=== PATIENT | female | born 2000 | race Two or more races ===

== ENCOUNTER 2024-04-21 14:50 | Emergency (ER) | payer OTHER ==
[~2024-04-21] VITALS: Ht 160 cm; Wt 95.5 kg
[2024-04-21 14:53] VITALS: BP 123/66; PULSE 65; RESP 18; TEMP 98.2; O2SAT 99
[2024-04-21] MEDS: ACETAMINOPHEN 500 MG TABLET PO ONE (15:42)
[2024-04-21] MEDS: LIDOCAINE 5% TRANSDERMAL PATCH TD ONE (15:45)
[2024-04-21] MEDS ORDERED: ACET-3385 PO (17:04)
[2024-04-21] MEDS ORDERED: IBUP-1492 PO (17:04)
[2024-04-21] MEDS ORDERED: LIDO700A15 TP (17:04)
== END 2024-04-21 17:16 | disposition home or self-care (01) ==
LOC: EMS 14:50
DX: R07.81 Pleurodynia (principal)
CPT/HCPCS: 71101; 85379; 99284

== ENCOUNTER 2024-10-26 12:02 | Emergency (ER) | payer OTHER ==
[~2024-10-26] VITALS: Ht 160 cm; Wt 103.0 kg
[~2024-10-26 12:02] MED LIST: ACET-3385 PO; IBUP-1492 PO; LIDO-57 TP
[2024-10-26 12:26] VITALS: TEMP 98.1
[2024-10-26] MEDS ORDERED: ACET-66 PO (13:15)
[2024-10-26] MEDS ORDERED: CEPH-558 PO (13:15)
[2024-10-26] MEDS ORDERED: GUAIFDM PO (13:15)
[2024-10-26 13:47] VITALS: BP 120/67; PULSE 72; RESP 16; O2SAT 100
== END 2024-10-26 13:55 | disposition home or self-care (01) ==
LOC: EMS 12:02
DX: H66.92 Otitis media, unspecified, left ear (principal); F41.9 Anxiety disorder, unspecified; J06.9 Acute upper respiratory infection, unspecified; Z79.899 Other long term (current) drug therapy
CPT/HCPCS: 99283; Z7502

== ENCOUNTER 2024-10-31 09:43 | Emergency (ER) | payer OTHER ==
[~2024-10-31] VITALS: Ht 160 cm; Wt 104.0 kg
[~2024-10-31 09:43] MED LIST changes: +ACET-66 PO; +CEPH-558 PO; +GUAIFDM PO
[2024-10-31 10:10] VITALS: TEMP 98
[2024-10-31] MEDS ORDERED: AMOX500C2 PO (11:17)
[2024-10-31] MEDS: NEOMYCIN/POLYMYXIN B/HYDROCORT 10 ML OTIC SUSPENSION AS ONE (11:21)
[2024-10-31 12:27] VITALS: BP 132/72; PULSE 72; RESP 18; O2SAT 98
== END 2024-10-31 12:29 | disposition home or self-care (01) ==
LOC: EMS 11:21
DX: H66.92 Otitis media, unspecified, left ear (principal); H60.92 Unspecified otitis externa, left ear; Z79.899 Other long term (current) drug therapy
CPT/HCPCS: 99283